=== PATIENT | male | born 1980 | race Caucasian/White ===

== ENCOUNTER → 2019-06-09 11:23 | Outpatient (CLI) | payer OTHER, SELFPAY ==
--- NOTE | ~2019-06-09 | XR_ITS ---
EXAMINATION: XR hip RT min 2V EXAM DATE: 06/09/2019 11:51 INDICATION: No known recent injury provided at this time. Pain of the right hip. TECHNIQUE: Right hip frontal, 'frog leg' projections for interpretation. There is no prior study fo r comparison. FINDINGS: Smooth right hip femoral head contour, no radiographic evidence of avascular necrosis. The re is mild primary osteoarthritis. Lumbar fusion L5-S1. There are no acute fractures or dislocations identified. There is no subcutaneous gas. The soft tissue is unremarkable. There are no radiopaq ue foreign bodies. IMPRESSION: Mild left hip osteoarthritis. Reviewed, dictated and finalized at location B. EILLANCE DUAL RATE OFFICER
== END ==
PROVIDERS: PCP Family Medicine; Visit Provider Family Medicine
DX: M16.12 Unilateral primary osteoarthritis, left hip (principal)
CPT/HCPCS: 73502

== ENCOUNTER → 2020-01-18 14:03 | Outpatient (CLI) | payer OTHER, SELFPAY ==
--- NOTE | ~2020-01-18 | XR_ITS ---
EXAMINATION: XR knee RT 3V DATE: 01/18/2020 14:13 INDICATION: Right knee pain TECHNIQUE: Three views of the right knee were obtained. COMPARISON: 01/29/2014 FINDINGS: Alignment is normal. No fracture or osteochondral lesion. There is mild tricompartmental os teoarthritis characterized by tiny marginal osteophytes. There is a small to moderate size knee joint effusion. Soft tissues are unremarkable. IMPRESSION: 1. Mild osteoarthritis with small to moderate-sized knee joint effusion. Reviewed, dictated and finalized at location A.
== END ==
PROVIDERS: PCP Family Medicine; Visit Provider Physician Assistant
DX: S89.91XA Unspecified injury of right lower leg, initial encounter (principal); X58.XXXA Exposure to other specified factors, initial encounter; M17.11 Unilateral primary osteoarthritis, right knee; M25.461 Effusion, right knee
CPT/HCPCS: 73562

== ENCOUNTER 2020-01-19 07:29 | Emergency (ER) | payer OTHER, SELFPAY ==
[2020-01-19] VITALS (19 sets, daily range): BP systolic 121–134; BP diastolic 62–75; PULSE 67–93; RESP 12–24; TEMP 36.7; O2SAT 98–99
--- NOTE | ~2020-01-19 | CT_ITS ---
EXAMINATION: CT brain wo con DATE: 01/19/2020 08:09 INDICATION: Syncope. Head injury. TECHNIQUE: Computed tomography (CT) of the head was performed without intravenous contrast. The mA wa s adjusted according to patient size. Iterative reconstruction technique was employed. The dose-lengt h product was 605.33 mGy-cm. COMPARISON: None FINDINGS: There is no intracranial hemorrhage, acute infarction, or abnormal intracranial mass lesion . The ventricles are normal in size. The orbits are normal. There is minimal mucosal thickening in ri ght maxillary sinus. The mastoid air cells are normal. IMPRESSION: 1. Normal brain. Reviewed, dictated and finalized at location D. IMPRESSION: 1. Normal brain.
--- NOTE | ~2020-01-19 | XR_ITS ---
EXAMINATION: XR chest 1V DATE: 01/19/2020 08:12 INDICATION: Syncope. TECHNIQUE: A single frontal view of the chest was obtained. COMPARISON: None. FINDINGS: There are mild airspace opacities in right midlung zone. No pleural effusion or pneumothora x. The heart size is normal. IMPRESSION: 1. Mild airspace opacities in right midlung zone, consistent with atelectasis versus pneumonia. Reviewed, dictated and finalized at location D. IMPRESSION: 1. Mild airspace opacities in right midlung zone, consistent with atelectasis v ersus pneumonia.
--- NOTE | 2020-01-19 07:51 | ECG_ITS ---
Measurements Intervals [place] Rate: 72 P: 25 MS: 126 QRS: 28 QRSD: 106 T: 30 QT: 377 QTc: 415 Interpretive Statements SINUS RHYTHM NORMAL ECG Electronically Signed On 01-19-2020 8:43:28 CDT by Aníbal Pimentel D.O.
--- NOTE | 2020-01-19 07:52 | ED.SYNCOPE ---
HPI - Syncope General Chief Complaint: Syncope Stated Complaint: Urgent care sent/syncopal episode Time Seen by Provider: 01/19/20 07:38 Source: patient Mode of arrival: ambulatory Limitations: no limitations History of Present Illness HPI narrative: This patient is a 39 year old male who presents for evaluation of a syncopal episode. He states starting last night while sleeping he was having intermittent spells in which he was having chills and hot flashes. This morning he got up to go the restroom while having one of his spells, and he developed dizziness on standing. He states he passed out and hit his head. He denies having chest pain, sob, fever, nausea, vomiting, abdominal pain, palpitations with these episodes. He denies any symptoms now. MD complaint: loss of consciousness Related Data Home Medications Medication Instructions Recorded Confirmed No Home Medications 01/19/20 01/19/20 Allergies Allergy/AdvReac Type Severity Reaction Status Date / Time No Known Allergies Allergy Unknown Verified 01/19/20 07:35 Review of Systems Review of Systems: All systems reviewed & are unremarkable except as noted in HPI and below Constitutional: Constitutional: Reports chills Eyes: Eyes: Reports no additional eye complaints Cardiovascular: Cardiovascular: Denies chest pain and Denies rapid heart rate Respiratory: Respiratory: Denies cough and Denies dyspnea Gastrointestinal: Gastrointestinal: Denies abdominal pain, Denies diarrhea, Denies nausea and Denies vomiting Neurologic: Reports syncope Endocrine: Endocrine: Reports excessive sweating PMFSH Past Medical History Medical History (Updated 01/19/20 @ 09:51 by Kelli Talbert MD) Erectile dysfunction Essential (primary) hypertension IFG (impaired fasting glucose) Low testosterone in male Morbid (severe) obesity due to excess calories DL on CPAP Surgical History Surgical History (Updated 01/19/20 @ 07:53 by Kelli Talbert MD) Previous back surgery S/P bariatric surgery Social History Social History Social History: Years smoked: 3 Smoking status: Former smoker Tobacco type: cigarettes Second hand tobacco smoke exposure: No Smoking end date: 04/12/01 Alcohol intake: never Substance use: never Substance use type: does not use Gender identity (if verbalized by the patient): Male Exam Const: General: no acute distress and alert Orientation/consciousness: patient oriented x3 HENMT: Head: normocephalic and scalp tenderness (left posterior) Ears: TM's normal bilaterally General nose exam: Other nasal findings present (superficial abrasion to right nasal bridge) Face and sinus: face symmetric Mouth: Yes Normal oral and palatal mucosa present, Yes lip normal and Yes oropharynx normal Throat: posterior oropharynx normal, tonsils normal and uvula midline Eyes: Pupils: Equal, round and reactive pupils present EOM: EOMs intact bilaterally Chest: Chest palpation & inspection: normal inspection of the chest Resp: Effort & Inspection: normal respiratory effort and no retractions Auscultation: clear to auscultation bilaterally Cardio: Rate: regular rate Rhythm: regular rhythm Heart sounds: no murmurs GI: GI Palp: Yes Soft to palpation, No Tenderness to palpation present (GI) and No Guarding due to palpation present (GI) Auscultation: normal bowel sounds Back/Spine/Pelvis: Back: no CVA tenderness Skin: General skin exam: normal color Rashes: no rashes Neuro: General: patient oriented x3, moves all extremities and CN's II-XI intact bilaterally Course Reevaluation(s) Reevaluation #1: I have discussed with patient no acute findings. he denies any complaints. Date: 01/19/20 Time: 09:49 Vital Signs Vital signs: Vital Signs Temperature 98.1 F 01/19/20 07:33 Pulse Rate 82 01/19/20 07:33 Respiratory Rate 18 01/19/20 07:33 Bloo
[2020-01-19 08:03] LABS: Basophils Percent Auto 0.2 % (0.2-1.2); Eosinophils Absolute Auto 0.1 K/mm3 (0-0.3); Eosinophils Percent Auto 0.5 % (0-4.4); Hematocrit 43.7 % (42.0-52.0); Hemoglobin 14.7 g/dL (14.0-18.0); Immature Granulocyte Absolute 0.05 K/mm3 (0.00-0.031); Immature Granulocyte Percent A 0.4 % (0-0.5); Lymphocytes Absolute Auto 1.14 K/mm3 (0.9-3.2); Lymphocytes Percent Auto 9.4 % (18.3-44.2); Mean Corpuscular HGB Conc 33.6 g/dl (32-36); Mean Corpuscular Hemoglobin 28.2 pg (26-34); Mean Corpuscular Volume 83.7 fl (80-100); Mean Platelet Volume 10.6 fl (7.4-10.4); Monocytes Percent Auto 8.6 % (2.6-8.5); Neutrophils Absolute Auto 9.8 K/mm3 (1.3-6.7); Neutrophils Percent Auto 80.9 % (45.5-73.1); Platelet Count Result 252 k/mm3 (150-375); Red Blood Count 5.22 M/mm3 (4.6-6.20); Red Cell Distribution Width 12.8 % (11.5-14.5); White Blood Count 12.1 K/mm3 (4.5-10.0)
[2020-01-19] MEDS: SODIUM CHLORIDE 0.9% IV 1,000 ML 999 ML IV CONT (08:03)
--- NOTE | 2020-01-19 08:03 | PC.NURSE ---
Patient has wound to bridge of nose and upper lip from the fall this morning. Patient A&Ox4, speech clear. Respirations non-labored. Patient updated on plan of care. Patient to CT at this time via stretcher.
[2020-01-19 08:13] LABS: INR 1.1; Prothrombin Time 14.1 Seconds (11.1-14.7)
[2020-01-19 08:14] LABS: Partial Thromboplastin Time 30.7 SECONDS (22.3-36.8)
[2020-01-19 08:16] LABS: Alanine Aminotransferase 22 U/L (4-50); Albumin Level 4.5 g/dL (3.5-5.1); Alkaline Phosphatase 71 U/L (38-126); Anion Gap 9 mmol/L (8-16); Aspartate Amino Transferase 23 U/L (17-59); Bilirubin,Total 0.7 mg/dL (0.2-1.3); Blood Urea Nitrogen 16 mg/dL (9-20); Calcium 9.9 mg/dL (8.4-10.2); Carbon Dioxide 30 mmol/L (22-30); Chloride 102 mmol/L (98-107); D Dimer 0.37 ug/mL (<0.48); Estimated CRCL calculation 99 ml/min; Estimated Glomerular Filt Rate > 60; Glucose 106 mg/dL (75-110); Magnesium 1.6 mg/dL (1.6-2.3); Sodium 141 mmol/L (137-145)
[2020-01-19 08:28] LABS: Troponin I < 0.012 ng/mL (0.000-0.034)
[2020-01-19 09:23] LABS: Add Urine Microscopic? YES; Appearance Urine Clear (Clear); Bacteria Urine Trace /hpf; Bilirubin Urine Negative (Negative); Blood Urine Negative (Negative); Color Urine Yellow (Yellow); Glucose Urine UA Negative (Negative); Ketones Urine 1+ mg/dL (Negative); Leukocyte Esterase Ur Negative LEU/UL (Negative); Mucus Urine Few /lpf; Nitrate Urine Negative (Negative); Protein Urine Negative (Negative); RBC Urine 0-2 /hpf (0-2); Specific Grav Ur 1.025 (1.001-1.035); Squamous Epithelial Cell Urine Rare /hpf (Few); Urobilinogen Urine Negative mg/dL (<2.0)
== END 2020-01-19 10:00 | disposition home or self-care (01) ==
PROVIDERS: Emergency Provider General Practice; PCP Family Medicine
DX: R55 Syncope and collapse (principal); R91.8 Other nonspecific abnormal finding of lung field; Z87.891 Personal history of nicotine dependence
CPT/HCPCS: 36415; 70450; 71045; 80053; 81001; 83735; 84484; 85025; 85380; 85610; 85730; 93005; 99284; J7030

== ENCOUNTER → 2020-02-21 12:18 | Outpatient (CLI) | payer OTHER, SELFPAY ==
--- NOTE | ~2020-02-21 | XR_ITS ---
XR_CERV2-3V_CR DATE: 02/21/2020 12:35 INDICATION: Neck pain TECHNIQUE: AP, open-mouth, lateral, swimmer views COMPARISON: None FINDINGS: There is mild reversal of cervical spine. C1 and C2 are normally aligned and the odontoid p rocess is intact. No fracture or dislocation or locked facet or prevertebral soft tissue swelling. There is mild anterior spurring at C4-5 and C5-6. Cervical interspaces are relatively preserved. IMPRESSION: Mild reversal cervical curvature Mild degenerative disc disease at C4-5 and C5-6 Reviewed, dictated and finalized at Location A. Reviewed, dictated and finalized at location A. RVISOR URANIUM PROCESSING
--- NOTE | ~2020-02-21 | MR_ITS ---
EXAMINATION: MR knee RT wo con DATE: 02/21/2020 13:39 INDICATION: Right knee pain TECHNIQUE: Magnetic resonance imaging (MRI) of the right knee was performed without intravenous contr ast. Sequences included coronal PD-weighted FSE, coronal PD-weighted FS FSE, sagittal T2-weighted FS E, sagittal PD-weighted FS FSE and axial PD weighted fat saturated FSE. COMPARISON: None. FINDINGS: Medial compartment: There is an abnormal contour to the anterior horn of the medial meniscus with configuration suggestin g lateral displacement of a small flap tear arising from the medial side of the anterior horn. Articu lar cartilage is normal. Lateral compartment: Lateral meniscus is normal. Articular cartilage is normal. Patellofemoral compartment: Articular cartilage is normal. Ligaments and tendons: Complete tear along the proximal aspect of the anterior cruciate ligament. The posterior cruciate lig ament is normal. Prominent thickening without significant increased signal or surrounding edema of th e proximal medial collateral ligament consistent with scarring related to chronic sprain. The fibular collateral ligament complex is normal. Patellar tendon is normal. Mild distal quadriceps tendinopath y. The visualized medial and lateral hamstring tendons as well as the iliotibial band are normal. Fluid: Physiologic amount of fluid in the joint space. No loose osteochondral bodies identified. Osseous/other: There is marrow edema surrounding a linear low signal intensity nondisplaced fracture line extending across the posterior rim of the medial tibial plateau. Similar mild edema surrounding a more subtle l inear trabecular fracture line underlying the posterior rim of the lateral tibial plateau. Pattern wo uld be consistent with an anterior tibial subluxation injury as would be allowed by the complete ante rior cruciate ligament tear. There is no significant edema in the soft tissues at the intercondylar n otch suggesting this may represent a recurrent injury with the tear of the anterior cruciate ligament likely occurring at an earlier time. No corresponding bone contusions identified along the femoral c ondyles. Otherwise normal marrow signal with no pathologic marrow replacing process. IMPRESSION: 1. Complete tear of the anterior cruciate ligament which is likely chronic and scarring consistent wi th additional chronic partial tear of the proximal medial collateral ligament. 2. Marrow edema surrounding impaction fracture lines along the posterior rim of the medial and latera l tibial plateau suggesting a more recent anterior tibial subluxation injury. 3. Displaced meniscal flap tear at the anterior horn of the medial meniscus. Reviewed, dictated and finalized at location A. SITE ADMIN IMPRESSION: 1. Complete tear of the anterior cruciate ligament which is likely chronic and scarring consistent with additional chronic partial tear of the proximal medial collateral ligament. 2. Marrow edema surrounding impaction fracture lines along the posterior rim of the medial and lateral tibial plateau suggesting a more recent anterior tibial subluxation injury. 3. Displaced meniscal flap tear at the anterior horn of the medial meniscus.
== END ==
PROVIDERS: PCP Family Medicine; Visit Provider Physician Assistant
DX: M50.322 Other cervical disc degeneration at C5-C6 level (principal); M53.82 Other specified dorsopathies, cervical region; S83.511A Sprain of anterior cruciate ligament of right knee, initial encounter; M79.89 Other specified soft tissue disorders; S82.141A Displaced bicondylar fracture of right tibia, initial encounter for closed fracture; S83.241A Other tear of medial meniscus, current injury, right knee, initial encounter
CPT/HCPCS: 72040; 73721

== ENCOUNTER 2020-03-04 12:37 | Outpatient (CLI) | payer OTHER, SELFPAY ==
--- NOTE | ~2020-03-04 | US_ITS ---
EXAMINATION: US carotid duplex BI DATE: 03/04/2020 13:04 INDICATION: Syncope. TECHNIQUE: Grayscale, color Doppler, and pulsed Doppler images of the cervical carotid arteries were obtained. The degree of vessel stenosis is placed in one of the following categories: normal, <50%, 5 0-69%, >=70% but less than near-occlusion, near-occlusion, or total occlusion. Note that percent sten osis relative to normal distal artery lumen diameter is indirectly measured from velocity measurement s as described by Everton, et al. Radiology 2003; 229:340-346. Notes: Normal: Peak systolic velocity <125 centimeters/sec and no plaque <50%. Peak systolic velocity <125 ( EDV <40; ICA/CCA PSV ratio <2.0; used these factors only a tandem lesions or low cardiac output or co ntralateral disease) 50-69 %: PSV 125-230 (EDV 40-100; ratio 2-4) >= 70% but less than near occlusion: PSV greater than 230 (EDV > 100; ratio> 4.0) Near Occlusion: PSV that is variable; markedly narrowed lumen Occlusion: Absent flow on color/spectral Doppler and no lumen on mims scale. COMPARISON: None. FINDINGS: RIGHT: The right common carotid artery (CCA) peak systolic velocity (PSV) is 118 cm/s. The right internal ca rotid artery (ICA) PSV is 104 cm/s. The right ICA end-diastolic velocity (EDV) is 23 cm/s. The right ICA/CCA PSV ratio is 0.9. The external carotid artery (ECA) PSV is 103 cm/s. There is antegrade flow in the right vertebral artery. LEFT: The left CCA PSV is 99 cm/s. The left ICA PSV is 82 cm/s. The left ICA EDV is 21 cm/s. The left ICA/C CA PSV ratio is 0.8. The ECA PSV is 119 cm/s. There is antegrade flow in the left vertebral artery. IMPRESSION: 1. Less than 50% stenosis in the right internal carotid artery by sonographic criteria. 2. Less than 50% stenosis in the left internal carotid artery by sonographic criteria. Reviewed, dictated and finalized at location A. N TUNER IMPRESSION: 1. Less than 50% stenosis in the right internal carotid artery by sonographic anson burrell. 2. Less than 50% stenosis in the left internal carotid artery by sonographic yovani jolly.
== END 2020-03-04 12:38 | disposition home or self-care (01) ==
PROVIDERS: PCP Family Medicine; Visit Provider Family Medicine
DX: R55 Syncope and collapse (principal); I65.23 Occlusion and stenosis of bilateral carotid arteries; R42 Dizziness and giddiness
CPT/HCPCS: 93880

== ENCOUNTER 2024-06-08 01:47 | Day surgery (SDC) | payer OTHER, SELFPAY ==
[2024-05-25 16:07] VITALS: BMI 45.2
--- OUTSIDE RECORDS SUMMARY | 2024-06-08 01:50 | XMS_ITS | Referral Summary ---
Author Organization [facility] Address [address] [place] [id number] Care Team Providers Care Display Designer Outside Name Role Phone Ariel Shultz MD Primary Care Provider Allergies No known active allergies Medications latanoprost (XALATAN) 0.005 % ophthalmic solution 06/04/2021 Active Active Problems Problem Noted Date Diagnosed Date Dizziness 06/05/2021 Status post bariatric surgery 06/05/2021 Syncope and collapse 06/05/2021 Bradycardia 06/05/2021 Pain of finger of right hand 06/05/2021 Lumbago 03/20/2015 Degeneration of intervertebral disc of lumbosacr al region 03/20/2015 Lumbar disc herniation with radiculopathy 2014 Morbid obesity 08/02/2014 Social History Tobacco Use Types Packs/Day Years Used Date Smoking Tobacco: Former Cigarettes 0.3 3 Smokeless Tobacco: Never AUDIT-C Answer Date Recorded Q1: How often do you have a drink containing alc ohol? Never 06/05/2021 Average Number of Drinks Not on file 022 Frequency of Binge Drinking Not on file 05/14 Personal Safety Answer Date Recorded Getting School Help Needed Not on file 06/25 Sex and Gender Information Value Date Recorded Sex Assigned at Not on file Legal Sex Male 5:30 AM THERAPIST RRT Gender Identity Not on file Sexual Orientation Not on file Last Filed Vital Signs Vital Sign Reading Time Taken Comments Blood Pressure 128/88 06/05/2021 2:21 PM THERAPIST RRT Pulse 88 06/05/2021 2:21 PM THERAPIST RRT Temperature - - Respiratory Rate - - Oxygen Saturation 97% 06/05/2021 11:30 AM THERAPIST RRT Inhaled Oxygen Concentration - - Weight 104.8 kg (231 lb) 06/05/2021 11:30 AM THERAPIST RRT Height 177.8 cm (5' 10 ) 06/05/2021 11:30 AM THERAPIST RRT Body Mass Index 33.15 06/05/2021 11:30 AM THERAPIST RRT Plan of Treatment Not on file Insurance [facility] CHOICE PLUS [facility] HMO/PPO Address: [facility] [address] [place] [address] [employer] OPEN ACCESS Care Teams Display Designer Outside Relationship Specialty Start Date End Date Ariel Shultz MD [address] [place] [address] [address] [facility] [address] [place] [address] PCP - General Family Medicine 01/16/19
--- OUTSIDE RECORDS SUMMARY | 2024-06-08 01:50 | XMS_ITS | Encounter Summary ---
Author Organization [facility] Address [address] [place] [address] Care Team Providers Care Rinkman Name Role Phone Ariel Shultz MD Primary Care Provider Encounter Details Date Type Department Care Team (Late st Contact Info) Description 02/02/2019 Abstract [facility] Operating Room [address] [phone] Michael Álvarez MD [address] [place] [address] Social History Tobacco Use Types Packs/Day Years Used Date Smoking Tobacco: Never Assessed Sex and Gender Information Value Date Recorded Sex Assigned at Not on file Legal Sex Male 9:33 PM CDT Gender Identity Not on file Sexual Orientation Not on file documented as of this encounter Plan of Treatment Not on file documented as of this encounter Visit Diagnoses Not on filedocumented in this encounter Care Teams Rinkman Relationship Specialty Start Date End Date Ariel Shultz MD [address] [facility] [address] [facility] [address] [place] [address] PCP - General Family Practice 03/10/19 documented as of this encounter
--- OUTSIDE RECORDS SUMMARY | 2024-06-08 01:50 | XMS_ITS | Clinical Summary ---
Author Organization [facility] Address [address] [place] [id number] Care Team Providers Care Stamp Presser Name Role Phone Ariel Shultz MD Primary Care Provider Social History Tobacco Use Types Packs/Day Years Used Date Smoking Tobacco: Never Assessed Sex and Gender Information Value Date Recorded Sex Assigned at Not on file Legal Sex Male 4:39 PM CDT Gender Identity Not on file Sexual Orientation Not on file Last Filed Vital Signs Vital Sign Reading Time Taken Comments Blood Pressure 116/74 09/13/2014 5:36 PM CDT Pulse 80 09/13/2014 5:36 PM CDT Temperature - - Respiratory Rate - - Oxygen Saturation - - Inhaled Oxygen Concentration - - Weight 158.8 kg (350 lb) 09/13/2014 5:36 PM CDT Height 180.3 cm (5' 11 ) 09/13/2014 5:36 PM CDT Body Mass Index 48.82 09/13/2014 5:36 PM CDT Plan of Treatment Health Maintenance Due Date Last Done Comments Colorectal Cancer Screening Colonoscopy (10 Years) 1979 Annual Physical 1982 Hepatitis C 1997 DTaP, Tdap and Td Vaccines ( 1 - Tdap) 1998 Hepatitis B Vaccines (1 of 3 - 19+ 3-dose series) 1998 COVID-19 Vaccine (2023-2 5 season) 2023 Influenza Adult (#1) 2024 HPV Vaccines Aged Out No longer eligi ble based on patient's age to complete this topic Meningococcal B Vaccine Aged Out No l onger eligible based on patient's age to complete this topic Meningococcal Vaccine Aged Out No vern juan eligible based on patient's age to complete this topic Pneumococcal Vaccine: Pediat rics (0 to 5 Years) and At-Risk Patients (6 to 64 Years) Aged Out No longer eligible b ased on patient's age to complete this topic RSV Immunizations Under 20 Months Aged Out No longer eligible based on patient's age to complete this topic Care Teams Stamp Presser Relationship Specialty Start Date End Date Ariel Shultz MD [address] [place] [address] PCP - General 09/11/14
--- OUTSIDE RECORDS SUMMARY | 2024-06-08 01:50 | XMS_ITS | Clinical Summary ---
Author Organization [facility] Address [address] [place] [phone] Care Team Providers Care Pleat Taper Name Role Phone Ariel Shultz MD Primary [...] herniation with radiculopathy 2014 Morbid obesity 08/02/2014 Surgical History Surgery Date Site/Laterality Comments LASIK Corneal LASIK - 2009 (Added by Conv) SLEEVE GASTROPLASTY SPINAL FUSION KNEE SURGERY Medical History Medical History Date Comments Personal history of other di seases of the circulatory system History of hypertension - (A dded by TW Conv) Hypertension Dizzy Sleep apnea Family History Medical History Relation Name Comments Cancer Father Family history of malignant neoplasm - (Added by TW Conv) Hypertension Mother Family history of hypertension - (Added by TW Conv) Obesity Mother Family history of obesity - (Added by TW Conv) Relation Name Status Comments Brother Alive Father (Age 73) Mother Alive Social History Tobacco Use Types Packs/Day Years [...] on file Legal Sex Male 5:30 AM CAREER DEVELOPMENT CONSULTANT Gender Identity Not on file Sexual Orientation Not on file Obstetrics History Last Filed Vital Signs Vital Sign Reading Time Taken Comments Blood Pressure 128/88 06/05/2021 2:21 PM CAREER DEVELOPMENT CONSULTANT Pulse 88 06/05/2021 2:21 PM CAREER DEVELOPMENT CONSULTANT Temperature - - Respiratory Rate - - Oxygen Saturation 97% 06/05/2021 11:30 AM CAREER DEVELOPMENT CONSULTANT Inhaled Oxygen Concentration - - Weight 104.8 kg (231 lb) 06/05/2021 11:30 AM CAREER DEVELOPMENT CONSULTANT Height 177.8 cm (5' 10 ) 06/05/2021 11:30 AM CAREER DEVELOPMENT CONSULTANT Body Mass Index 33.15 06/05/2021 11:30 AM CAREER DEVELOPMENT CONSULTANT Plan of Treatment Not on file Insurance [facility] [place] [address] [facility] Care Teams Pleat Taper Relationship Specialty Start Date End Date Ariel Shultz MD [address] [facility] [address] [place], [place] [phone] PCP - General Family Medicine 01/16/19
--- OUTSIDE RECORDS SUMMARY | 2024-06-08 01:51 | XMS_ITS | Clinical Summary ---
Author Organization [facility] Address [address] [facility] [address] [address] Phone Care Team Providers Care Disability Hearing Officer Name Role Phone Ariel Shultz MD Primary Care Provider [phone] Allergies No known active allergies Medications latanoprost (XALATAN) 0.005 % solution 1 Drop daily at bedtime. Active amLODIPine (NORVASC) 5 mg tablet Take 5 mg by mouth daily. Active lisinopril (PRINIVIL) 10 mg tablet Take 10 mg by mouth daily. Active testosterone (TESTIM) 50 mg/5 gram (1 %) Gel by See Admin Instructions route daily. Apply the contents of one tube to the shoulders and upper arms in the morning. Active HYDROcodone-gee taminophen (HYCET) 7.5-325 mg/15 mL SolutionIndicat ions:Morbid obesity (CMS/HCC) Take 15 mL by mouth every 6 hours as needed for Pain, Severe. Max Daily Amount: 60 mL 300 mL 03/28/2019 11:50 AM CONTINUOUS IMPROVEMENT MANAGER 9 Active ondansetron (ZOFRAN ODT) 4 mg Tablet, Rapid Dissolve Place 1 Tablet (4 mg) under tongue every 6 hours as needed for Nausea. 15 Tablet 03/28/2019 11:50 AM CONTINUOUS IMPROVEMENT MANAGER 9 Active Active Problems Problem Noted Date Diagnosed Date Morbid obesity Social History Tobacco Use Types Packs/Day Years Used Date Smoking Tobacco: Former Smokeless Tobacco: Never Alcohol Use Standard Drinks/Week Comments Not Currently 0 (1 standard drink = 0.6 oz pur e alcohol) Sex and Gender Information Value Date Recorded Sex Assigned at Not on file Legal Sex Male 9:33 PM CDT Gender Identity Not on file Sexual Orientation Not on file Last Filed Vital Signs Vital Sign Reading Time Taken Comments Blood Pressure 133/79 03/28/2019 12:00 PM CONTINUOUS IMPROVEMENT MANAGER Pulse 76 03/28/2019 12:00 PM CONTINUOUS IMPROVEMENT MANAGER Temperature 36.7 C (98.1 F) 03/28/2019 12:00 PM CONTINUOUS IMPROVEMENT MANAGER Respiratory Rate 18 03/28/2019 12:00 PM CONTINUOUS IMPROVEMENT MANAGER Oxygen Saturation 100% 03/28/2019 12:00 PM CONTINUOUS IMPROVEMENT MANAGER Inhaled Oxygen Concentration - - Weight 161 kg (355 lb) 03/28/2019 4:18 AM CONTINUOUS IMPROVEMENT MANAGER Height 177.8 cm (5' 10 ) 03/27/2019 11:00 AM CONTINUOUS IMPROVEMENT MANAGER Body Mass Index 50.94 03/27/2019 11:00 AM CONTINUOUS IMPROVEMENT MANAGER Plan of Treatment Health Maintenance Due Date Last Done Comments Pre-Diabetes and Diabetes Screening 1979 DTAP/TDAP/TD VACCINES (1 - Tdap) 1998 HEPATITIS B VACCINES (1 of 3 - 19+ 3-dose series) 1998 INFLUENZA VACCINE (#1) 2023 COLORECTAL SCREENING 2024 Colorectal Cancer Screening 2024 FIT-DNA Q 3 years 2024 FIT/FOBT Q 1 year 2024 Flex Sig/CT Colonography Q 5 years 2024 HPV VACCINES Aged Out No longer eligi ble based on patient's age to complete this topic PNEUMOCOCCAL VACCINE 0-64 YEARS Aged Out No longer eligible based on patient's age to complete this topic Medical Devices Implanted Type Area Retail Team Member Device Identifier Shelf Expiration Date Model / Serial / Lot Seamguard Endogia 60 Blck [id number] - [id number] Implanted:Qty : 2 on 03/27/2019 by Michael Álvarez MD at [facility] Biological N/A: Stomach [employer] 01/11/2022 [id number] / / [id number] Seamguard Endogia 60 Prpl [id number] - [id number] Implanted:Qty : 3 on 03/27/2019 by Michael Álvarez MD at [facility] Biological N/A: Stomach [employer] 01/12/[id number] / / [id number] Spinal Hardware Insurance [facility] [id number] RX [employer] RX Member Subscriber Plan / Payer (Ef fective for All Dates) Name:Phil Mccann Relation to Subscriber:Self Name:RamyPhil Hanh Payer ID:Not on file Group ID:[id number] Type:RX Commercial Address: [address] Advance Directives For more information, please contact: [phone] * Full Code (Latest Code Status on File) Date Activated Date Inactivated Comments 03/27/2019 10:52 AM 03/28/2019 6:47 PM * Full Code Date Activated Date Inactivated Comments 03/27/2019 6:20 AM 03/27/2019 10:52 AM Care Teams Disability Hearing Officer Relationship Specialty Start Date End Date Ariel Shultz MD [address] [facility] [address] [place] [id number] PCP - General Family Practice 03/10/19
--- OUTSIDE RECORDS SUMMARY | 2024-06-08 01:51 | XMS_ITS | Continuity of Care Document ---
Author Name [facility] Organization [facility] Care Team Providers Care Bulk Plant Manager Name Role Phone [facility] Unavailable Unavailable Social History Combined list of available smoking, tobacco, and other social history from Department of Defense and Veterans Affairs facilities. Social History Type Response Date Comment Sourc e This section is an empty social history section. [facility]
--- OUTSIDE RECORDS SUMMARY | 2024-06-08 01:51 | XMS_ITS | Continuity of Care Document ---
Author Organization [facility] [place] [address] [facility] [address] [place] [phone] Phone Care Team Providers Care Mechanical Designer Name Role Phone Lucy CHAN FACS, Eliecer Unavailable Unavailab le Allergies, Adverse Reactions, Alerts Substance Reaction Status Criticality No Known Allergies Active No Inform ation Medications Medication Instructions Dosage Effective Dates (start - stop) Status Comments LATANOPROST OP TOÑO 0.005% INSTILL 1 DROP INTO BOTH EYES IN THE EVENING (REFRIGERATE UNTIL FIRST OPENED FOR USE) 1 drop - Active lisinopril 20 mg-hydrochlorothia zide 25 mg tablet take 1 tablet by oral route every day 1.00 tablet - Active amlodipine 5 mg tablet take 1 tablet by oral route every day 5 MG - Active LATANOPROST OP TOÑO 0.005% INSTILL 1 DROP INTO BOTH EYES IN THE EVENING (REFRIGERATE UNTIL FIRST OPENED FOR USE) 1 drop - No Longer Active Procedures Procedure Date Refraction Visual Field Examination(s) Fundus Photography W/ Report Corneal Topography Eye Exam & Treatment Corneal Topography Office/outpatient Visit, Est No Charge Refraction Contact Lens Check SCODI, Posterior Segment Office/outpatient Visit, Est No Charge Refraction Fundus Photography W/ Report IOLMaster Corneal Topography IOLMaster Eye Exam Established Pt No Charge Refraction No Charge Optomap Fundus Photos 017 Corneal Topography Office/outpatient Visit, Est No Charge Refraction Eye Exam & Treatment Corneal Topography Allegretto-Lasik Comanaged Allegretto-Lasik Comanaged Corneal Topography Advance Directives Directive Yes / No Effective Date File Name No Information Encounters Encounter Description Practice Location Reason(s) For Visit Diagnoses Date Provider Providers Copied on Encounter Located within [facility], [address] [place], [place] [address] [address], [place], [place], [address], tel:[phone] [address] [place] No Information 1 Lucy Gonzáles. [facility] [employer], [address], [place], [place], [address], [place]. tel:[phone] Located within [facility], [facility] [address], [place], [place], [address], [place] tel:[phone] SEC Juancarlos N [place]berg[place] No Information 1 Lucy Gonzáles. [facility] [employer], [address], [place], [place], [address], [place]. tel:[phone] Located within [facility], [facility] [employer] [address], [place], [place], [address], [place] tel:[phone] SEC Juancarlos N [place] 6 month Complete (chief complaint) Keratoconus, stable, right eyeOcular hypertension, bilateralOther age-related incipient cataract, right eyeHx of LASIK 8 Lucy Gonzáles. [facility] [employer], [address], [place], [place], [address], [place]. tel:[phone] Referring Provider: Bronson Schafer, [address] [place] [address] [address], [place], [address] . tel:[phone] Office/outpat ient Visit, [facility], [address], [place], [place], [address], [place] tel:[phone] SEC Juancarlos Sawyer 3-4 Month follow up (chief complaint) Unspecified cataractKeratoc onus, stable, right eyeOcular hypertension, bilateral Mar-0 5-201 8 Lucy Eliecer. [address] [place] [address], [address], [place], [place], [address], [place]. tel:[phone] Referring Provider: Bronson Schafer, [address] [facility] [address] [facility], [place], [address] . tel:[phone] Located within [facility], [address] [place] [address] [address], [place], [place], [address], [place] tel:[phone] SEC Juancarlos Sawyer contact lens fitting (chief complaint) Peripheral opacity of both corneasKeratoco nus, unspecified, bilateral Nov-0 6-201 7 Winnie Dobson. [address] [facility], [address], [id number], [place]. tel:[phone] Referring Provider: Bronson Schafer, [address] [facility] [address] [facility], [place], [address] . tel:[phone] Office/outpat ient Visit, [facility], [address] [place] [address] [address], [place], [place], [address], [place] tel:[phone] SEC Juancarlos Sawyer glaucoma, pressure check (chief complaint) Ocular hypertension, bilateral Nov-0 6-201 7 Lucy Eliecer. [address] [place] [address], [address], [place], [place], [address], [place]. tel:[phone] Referring Provider: Bronson Schafer, [address] [facility] [address], [place], [address] . tel:[phone] Located within [facility], [address] [place] [address] [address], [place], [place], [address], [place] tel:[phone] SEC Juancarlos Sawyer Office visit (chief complaint) No Information 0 2-201 7 Lucy Eliecer. [address] [place] [address], [address], [place], [place], [address], [place]. tel:[phone] Referring Provider: Bronson Schafer, [address] [facility] [address], [place], [address] . tel:[phone] Office/outpat ient Visit, [facility], [address] [place] [address] [address], [place], [place], [address], [place] tel:[phone] SEC Juancarlos Sawyer 4 week Follow Up (chief complaint) No Information Nov--201 7 Neversink Eliecer. [address] [place] [address], [address], [place], [place], [address], . tel:[phone] Referring Provider: Bronson Schafer, [address] [facility] [address], [place], [address] . tel:[phone] Located within [facility], [address] [place] [address] [address], [place], [place], [address], [place] tel:[phone] SEC Juancarlos Sawyer Blurry VA (chief complaint) No Information 0 3 7 Winnie Dobson. [address] [facility], [facility] [address], [place], [address], [place]. tel:[phone] Referring Provider: Bronson Schafer, [address] [facility] [address], [place], [address] . tel:[phone] Located within [facility], [address] [place] [address] [address], [place], [place], [address], [place] tel:[phone] SEC [facility] No Information 3-201 0 Lucy Eliecer. [address] [place] [address], [address], [place], [place], [address], . tel:[phone] Referring Provider: Daron Wood OD F, [address] [facility] [address], [place], [address]. tel:[phone] [facility], [address], [place], [place], [address], [place] tel:[phone] [address] [facility] [place] No Information 2-201 0 [facility] . [address] [facility], [place], [place], [address], [place]. tel:[phone] Referring Provider: Daron Wood OD F, [address], [place], [address]. tel:[phone] Family History Family Member Type Diagnosis Age At Onset No Information Payers Payer name Insurance type Covered democrat ID Authorarely hairston(s) Dottie CANCINO [id number] Social History Type Description Quantity Date Captured Comments Sex Male Smoking Status No Information Chief Complaint And Reason For Visit No Information Reason For Referral Reason For Referral No Information Plan Of Treatment Date Type Action Status Patient Education Learning About Ocular H ypertension completed History Of Present Illness Encounter Date Complaint History Of Prese nt Illness 6 month Complete The 37 year old male presents for evaluation of 6 month Complete in the right eye and left eye. Hx of OHT OU, Keratoconus OU, and LASIK OU (2009). Patient states he feels his VA is getting worse. Patient would like to get an rx for glasses today, aware of fee and signed abn form. Patient using Latanoprost QD OU last used @ 730pm. No refills needed 3-4 Month follow up The 37 year old male presents for evaluation of 3-4 Month follow up in the right eye and left eye. Hx Ocular Hypertension OU, Keratoconus OU. Pt currently using Latanoprost QHS OU. Pt states vision OD is horrible, its blurry, does not do anything to attempt to clear vision other than using Rx gtts, vision OD has been blurry since initial visit wit SV, pt has no concerns with OS vision at this time. Pt denies any pain or discomfort at this time. contact lens fitting The 36 year old male presents for contact lens fitting in the right eye and left eye. Patient is seeing Dr. Ayala 1st. glaucoma, pressure check The 36 year old male presents for a 1 month IOP check ou due to ocular hypertension. Patient is using Latanoprost qhs ou. Office visit The 36 year old male presents for Office visit in the right eye and left eye. Hx Lasik OU, Corneal Opacity OU. Pt states his vision is getting worse since his last exam. Pt states OD is worse than OS in both distance and near. Pt states he has trouble driving at night due to poor vision. Pt states he has trouble reading road signs, small print due to poor vision. Pt states he is bothered by glare on bright days and at nigt while driving. Pt states he is not using eye dorps. Pt states he currently resides in [place] for the past 4 months. 4 week Follow Up The 36 year old male presents for 4 week Follow Up in the right eye and left eye. Hx Lasik OU, Corneal Opacity OU. Pt states his vision is doing Pt states OD is blurry and has been since June 2016, after he had an eye infection. Pt states he was prescribed Pred Forte TID x3 days, then BID x3 days, then QDx3 days OD then D/C. Pt states OS is fine no changes to report. Pt states he is not currently having any pain/discomfort but his vision has yet to improve. Blurry VA The 36 year old male presents for Blurry VA in the right eye. Hx of Lasik OU 2009. Pt states he had an eye infection in the right in May and his OD vision became blurry at distance. Pt state OD VA has never cleared up. Pt wears no gls or cls. Functional Status Date Functional Assessmen t No Information Instructions Date Instruction Additional Infor ghada Impression/Plan Impression/Plan Impression/Plan - Re turn to [facility] in 3 months as scheduled. Keratoconus, unspeci fied, bilateral - Educational material given Related to Keratoconus, unspecified, bilateral Impression/Plan - IO P improved on Latanoprost.Refills sent to [facility] employee pharmacy for mail order. Pt is going to [place]. Return to [facility] in 3-4 months for follow up and pentacam. May discuss enhancement at that time. Ocular hypertension, bilateral - Use of eye drops discussed Related to Ocular hypertension, bilateral Follow up - 1 month IOP check with OCT of ON with LAG & CTL fitting with DPW Impression/Plan - Ex am findings discussed with pt. Cataract is mild and does not appear to be the cause for his visual complaints. IOP is significantly elevated today. IOP is likely higher with his h/o Lasik. Pt was monitored with OHTN in 2009 prior to Lasik surgery with Dr. Wood. OCT & VF was normal at that time. His pre-treatment IOP was 26-27. He was treated with Lumigan ou qhs. Discussed importance of improved IOP. Will start Lumigan ou Qhs. Sample given to pt. Return to the office in 1 month for IOP check and obtain OCT of ON.Keratoconus discussed and improved vision with CTL wear. Will schedule CTL fit with DPW on the same day he is scheduled with LAG. Due to his commute Ocular hypertension, bilateral - Use of eye drops discussed Related to Ocular hypertension, bilateral Follow up - 6 months cat eval/IO P check Impression/Plan - Di scussed exam findings with pt and options for visual improvement. He understands enhancement can be done but would need to be done at [facility] and would have a fee. Discussed vision changes and glare complaints OD and explained early cataract formation OD can be the cause. Rec he hold on enhancement at this time and we will monitor cataract progression. Discussed IOP with pt and risk factors for glaucoma development. He currently lives in [place] now and drives here for his appointments. Rec he find an segmental wall installer in [place] that can check his IOP to prevent him from having to travel here so often. Pt needs BAT, BCVA prior to dilation on return visit and repeat pentacam. He understands if IOP remains elevated we will begin treatment with IOP medications. This is not indicated now. New spec Rx given to pt. Other cataract of ri ght eye - Surgery not indicated now. Related to Other cataract of right eye Impression/Plan - Re turn for corneal consultation with LAG and repeat Pentacam. Corneal opacity, per ipheral, right - Surgery not indicated now Related to Corneal opacity, peripheral, right Assessments Type Assessment Date No Information Patient Care Teams Name Effective Dates (start - stop) Status Members No Information
[2024-06-08 06:53] VITALS: BP 137/95; PULSE 91; RESP 20; TEMP 36.1; O2SAT 95; BMI 45.2
[2024-06-08] MEDS: LACTATED RINGERS 1,000 ML 150 ML IV CONT (07:13)
--- NOTE | 2024-06-08 07:20 | WPDANESEPPF ---
Anes - Initial Pre Proc Eval Procedure: Operation Date: 06/08/24 08:00 Proposed Procedures p Screening Colonoscopy - Biju Lizama MD Date/Time: 06/08/24 07:20 Surgeon: Biju Lizama MD Pre Op Diagnosis: Screening Patient Data Age: 44 Gender: M Height: 1.78 m Weight: 143 kg Last Vital Signs Temp 96.9 F L 06/08/24 06:53 Pulse 91 06/08/24 06:53 Resp 20 06/08/24 06:53 BP 137/95 H 06/08/24 06:53 Pulse Ox 95 06/08/24 06:53 O2 Del Method Room Air 06/08/24 06:53 Allergies Allergy/AdvReac Type Severity Reaction Status Date / Time No Known Allergies Allergy Unknown Verified 06/08/24 06:59 Home Medications ?Medication ?Instructions ?Recorded ?Confirmed ?Type latanoprost 0.005 % eye drops 1 drp EACH EYE HS 09/12/20 06/08/24 History multivitamin (Daily Multi-Vitamin 1 tablet PO DAILY 06/08/24 06/08/24 History tablet) Patient hx anesthesia problems: none Family hx anesthesia problems: none Results Review: All pre-operative results and documents have been reviewed as part of the pre-operative evaluation. [facility] Past Medical History Medical History Erectile dysfunction Morbid (severe) obesity due to excess calories Low testosterone in male IFG (impaired fasting glucose) DL on CPAP Essential (primary) hypertension Surgical History Surgical History Previous back surgery S/P bariatric surgery Social History Social History Social History: Years smoked: 3 Smoking status: Former smoker Tobacco type: cigarettes Second hand tobacco smoke exposure: No Smoking end date: 04/12/01 Alcohol intake: never Substance use: never Substance use type: does not use Living arrangements: with family Occupation/Education: occupation Gender identity (if verbalized by the patient): Male Sexual Orientation (if Verbalized by the Patient): Straight or Heterosexual Spiritual care concerns: No Anes - Eval Final PreProcedure Day of Procedure 06/08/24 07:20 Patient weight: morbidly obese Lungs: normal air movement Airway: Mallampati scale class II Neurological: alert and oriented Last oral intake: >/= 8 hours ASA classification: III Emergent: no Anesthetic plan: proceed Anesthesia type and monitoring: general GIVS and standard monitoring Results Review: All pre-operative results and documents have been reviewed as part of the pre-operative evaluation. DL but noncompliant w CPAP, hyperlipidemia, exercise limited by knee/back pain. Informed Consent: The patient's anesthetic plan and its attendant risks and benefits were discussed with the patient/family/POA. Questions were solicited and answers provided to the satisfaction of the patient/family/POA.
--- NOTE | 2024-06-08 07:36 | PM.IMHP ---
H&P: HPI History of Present Illness Date/Time: 06/08/24 07:36 Chief Complaint: screening colonoscopy Narrative: This is the patient's first colonoscopy. There are no GI symptoms and there is no family history of colorectal cancer. Review of Systems Review of Systems: All systems reviewed & are unremarkable except as noted in HPI and below PMFSH Past Medical History Medical History Erectile dysfunction Morbid (severe) obesity due to excess calories Low testosterone in male IFG (impaired fasting glucose) DL on CPAP Essential (primary) hypertension Surgical History Surgical History Previous back surgery S/P bariatric surgery Social History Social History Social History: Years smoked: 3 Smoking status: Former smoker Tobacco type: cigarettes Second hand tobacco smoke exposure: No Smoking end date: 04/12/01 Alcohol intake: never Substance use: never Substance use type: does not use Living arrangements: with family Occupation/Education: occupation Gender identity (if verbalized by the patient): Male Sexual Orientation (if Verbalized by the Patient): Straight or Heterosexual Spiritual care concerns: No Meds Home Medications and Allergies Home Medications ?Medication ?Instructions ?Recorded ?Confirmed ?Type latanoprost 0.005 % eye drops 1 drp EACH EYE HS 09/12/20 06/08/24 History multivitamin (Daily Multi-Vitamin 1 tablet PO DAILY 06/08/24 06/08/24 History tablet) Allergies Allergy/AdvReac Type Severity Reaction Status Date / Time No Known Allergies Allergy Unknown Verified 06/08/24 06:59 Vital Signs Vital Signs - 24 hr 06/08/24 06:53 Temperature 96.9 F L Pulse Rate 91 Respiratory Rate 20 Blood Pressure 137/95 H Pulse Oximetry 95 Oxygen Delivery Room Air Exam Const: General: cooperative and healthy appearing Resp: Effort & Inspection: normal respiratory effort and able to speak in complete sentences Auscultation: clear to auscultation bilaterally Cardio: Rate: regular rate Rhythm: regular rhythm GI: Inspection: normal to inspection GI Palp: No No hepatosplenomegaly present Auscultation: normal bowel sounds Rectal Exam: deferred Skin: General skin exam: normal color Psych: Appearance: grossly normal Mental Status: mental status grossly normal Assessment and Plan Assessment and plan (1) Encounter for screening colonoscopy: Code(s): Z12.11 - Encounter for screening for malignant neoplasm of colon Status: Acute Assessment and Plan: The patient is deemed a good candidate for the procedure. Consent signed. Will proceed.
[2024-06-08 07:56] VITALS: BP 137/85; PULSE 79; RESP 18; O2SAT 98
[2024-06-08 08:06] VITALS: BP 141/90; PULSE 75; RESP 20; O2SAT 100
[2024-06-08 08:16] VITALS: BP 140/90; PULSE 80; RESP 20; O2SAT 100
== END 2024-06-08 08:28 | disposition home or self-care (01) ==
PROVIDERS: PCP Family Medicine; Referring Provider Physician Assistant; Visit Provider Internal Medicine Gastroenterology
PROC: 0DJD8ZZ Inspection of Lower Intestinal Tract, Via Natural or Artificial Opening Endoscopic (ICD-10-PCS; CPT 45378; principal; 2024-06-08 08:00)
DX: Z12.11 Encounter for screening for malignant neoplasm of colon (principal); K57.30 Diverticulosis of large intestine without perforation or abscess without bleeding; K64.8 Other hemorrhoids; Z87.891 Personal history of nicotine dependence; E66.01 Morbid (severe) obesity due to excess calories; Z68.42 Body mass index [BMI] 45.0-49.9, adult
CPT/HCPCS: 45378; J2003; J2704; J7120

== ENCOUNTER 2024-07-01 17:24 | Emergency (ER) | payer OTHER, SELFPAY ==
--- NOTE | ~2024-07-01 | XR_ITS ---
XR hip LT 2V w AP pelvis DATE: 07/01/2024 17:52 INDICATION: Left hip pain TECHNIQUE: AP pelvis. AP and lateral views of left hip COMPARISON: None FINDINGS: Status post bilateral posterior and interbody surgical fusion at L5-S1. Normal alignment at the pubic symphysis and sacroiliac joints. No pelvic fracture or bone destruction is evident. Mild left hip osteoarthritis. No fracture or dislocation, avascular necrosis or bone destruction of t he left hip is evident. IMPRESSION: Mild left hip osteoarthritis Status post posterior and interbody surgical fusion at L5-S1 Reviewed, dictated and finalized at location A.
[2024-07-01 17:25] VITALS: BP 166/91; PULSE 84; RESP 16; TEMP 36.6; O2SAT 96
--- OUTSIDE RECORDS SUMMARY | 2024-07-01 17:26 | XMS_ITS | Clinical Summary ---
Author Organization [facility] Address 1400 [facility] [address] [address] Phone Care Team Providers Care Stripper And Printer Name Role Phone Ariel Shultz MD Primary Care Provider [phone] Allergies No known active allergies Medications latanoprost [...] 60 mL 300 mL 03/28/2019 11:50 AM STORE GROUP MANAGER 9 Active ondansetron (ZOFRAN ODT) 4 mg Tablet, Rapid Dissolve Place 1 Tablet (4 mg) under tongue every 6 hours as needed for Nausea. 15 Tablet 03/28/2019 11:50 AM STORE GROUP MANAGER 9 Active Active Problems Problem Noted [...] Comments Blood Pressure 133/79 03/28/2019 12:00 PM STORE GROUP MANAGER Pulse 76 03/28/2019 12:00 PM STORE GROUP MANAGER Temperature 36.7 C (98.1 F) 03/28/2019 12:00 PM STORE GROUP MANAGER Respiratory Rate 18 03/28/2019 12:00 PM STORE GROUP MANAGER Oxygen Saturation 100% 03/28/2019 12:00 PM STORE GROUP MANAGER Inhaled Oxygen Concentration - - Weight 161 kg (355 lb) 03/28/2019 4:18 AM STORE GROUP MANAGER Height 177.8 cm (5' 10 ) 03/27/2019 11:00 AM STORE GROUP MANAGER Body Mass Index 50.94 03/27/2019 11:00 AM STORE GROUP MANAGER Plan of Treatment Health Maintenance Due [...] age to complete this topic PNEUMOCOCCAL VACCINE 0-49 YEARS Aged Out No longer eligible based on patient's age to complete this topic Medical Devices Implanted Type Area Jordan Worker Device Identifier Shelf Expiration Date Model / Serial / Lot Seamguard Endogia 60 Blck [id number] - [id number] Implanted:Qty : 2 on 03/27/2019 by Michael Álvarez MD at [facility] Biological N/A: Stomach [employer] 01/11/2022 [id number] / / [id number] Seamguard Endogia 60 Prpl [id number] - [id number] Implanted:Qty : 3 on 03/27/2019 by Michael Álvarez MD at [facility] Biological N/A: Stomach [employer] 01/12/[id number] / / [id number] Spinal Hardware Insurance [facility] [id number] RX OPT[employer] RX Member Subscriber Plan / Payer (Ef fective for All Dates) Name:Phil Mccann Relation to Subscriber:Self Name:RamyPhil Hanh Payer ID:Not on file Group ID:[facility] Type:RX Commercial Address: [address] Advance Directives For more information, please contact: [phone] * Full Code (Latest Code Status on File) Date Activated Date Inactivated Comments 03/27/2019 10:52 AM 03/28/2019 6:47 PM * Full Code Date Activated Date Inactivated Comments 03/27/2019 6:20 AM 03/27/2019 10:52 AM Care Teams Stripper And Printer Relationship Specialty Start Date End Date Ariel Shultz MD [address] [facility] 120 [place] [id number] PCP - General Family Practice 03/10/19
--- OUTSIDE RECORDS SUMMARY | 2024-07-01 17:26 | XMS_ITS | Encounter Summary ---
Author Organization [facility] Address [address] [place] [address] Care Team Providers Care Realtime Court Reporter Name Role Phone Ariel Shultz MD Primary Care Provider Encounter Details Date Type Department Care Team (Late st Contact Info) Description 02/02/2019 Abstract [facility] Operating Room [address] [address] Michael Álvarez MD [address] [place] [address] Social History Tobacco Use Types Packs/Day Years [...] on filedocumented in this encounter Care Teams Realtime Court Reporter Relationship Specialty Start Date End Date Ariel Shultz MD [address] [facility] [address] [facility] 120 [place] [address] PCP - General Family Practice 03/10/19 documented as of this encounter
--- OUTSIDE RECORDS SUMMARY | 2024-07-01 17:26 | XMS_ITS | Clinical Summary ---
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 Gender Identity Not on file Sexual Orientation Not on file Obstetrics History Last Filed Vital Signs Vital Sign Reading Time Taken Comments Blood Pressure 128/88 06/05/2021 2:21 PM DIELECTRIC MACHINE OPERATOR Pulse 88 06/05/2021 2:21 PM DIELECTRIC MACHINE OPERATOR Temperature - - Respiratory Rate - - Oxygen Saturation 97% 06/05/2021 11:30 AM DIELECTRIC MACHINE OPERATOR Inhaled Oxygen Concentration - - Weight 104.8 kg (231 lb) 06/05/2021 11:30 AM DIELECTRIC MACHINE OPERATOR Height 177.8 cm (5' 10 ) 06/05/2021 11:30 AM DIELECTRIC MACHINE OPERATOR Body Mass Index 33.15 06/05/2021 11:30 AM DIELECTRIC MACHINE OPERATOR Plan of Treatment Not on file Insurance [facility] CHOICE PLUS [facility] HMO/PPO Address: [facility] [address] [place] [address] [facility] Care Teams Spray Stainer Relationship Specialty Start Date End Date Ariel Shultz MD [address] [facility] 120 [place], [place] [id number] PCP - General Family Medicine 01/16/19
--- OUTSIDE RECORDS SUMMARY | 2024-07-01 17:26 | XMS_ITS | Continuity of Care Document ---
Author Organization [facility] [place] [place] Address [address] [place] [address] Phone Care Team Providers Care Track Inspector Name Role Phone Lucy CHAN FACS, Eliecer [...] Diagnoses Date Provider Providers Copied on Encounter [facility], [address] [place], [place] [address], [place], [place], [id number], tel:[phone] SEC [place] No Information 1 Lucy Gonzáles. [facility] [employer], [address], [place], [place], [address], [place]. tel:[phone] [facility], [facility] [employer] [address], [place], [place], [address], [place] tel:[phone] SEC Juancarlos N [place] No Information 1 Lucy Gonzáles. [facility] [employer], [address], [place], [place], [address], [place]. tel:[phone] [facility], [facility] [employer] [address], [place], [place], [address], [place] tel:[phone] SEC Howell N [place] 6 month Complete (chief complaint) Keratoconus, stable, right eyeOcular hypertension, bilateralOther age-related incipient cataract, right eyeHx of LASIK 8 Lucy Gonzáles. [facility] [employer], [address], [place], [place], [address], [place]. tel:[phone] Referring Provider: Bronson Schafer, [address] [place] [address] [address], [place], [address] . tel:[phone] Office/outpat ient Visit, [facility], [address], [place], [place], [address], [place] tel:[phone] SEC Juancarlos Sawyer 3-4 Month follow up (chief complaint) Unspecified cataractKeratoc onus, stable, right eyeOcular hypertension, bilateral Mar-0 5-201 8 [place] Eliecer. [address] [place] [address], [address], [place], [place], [address], [place]. tel:[phone] Referring Provider: Bronson Schafer, [address] [facility] [address] [facility], [place], [address] . tel:[phone] [facility], [address] [place] [address] [address], [place], [place], [address], [place] tel:[phone] SEC Juancarlos Sawyer contact lens fitting (chief complaint) Peripheral opacity of both corneasKeratoco nus, unspecified, bilateral Nov-0 6-201 7 Winnie Dobson. [address] [facility], [address], [id number], [place]. tel:[phone] Referring Provider: Bronson Schafer, [address] [facility] [address] [facility], [place], [address] . tel:[phone] Office/outpat ient Visit, [facility], [address] [place] [address] [address], [place], [place], [address], [place] tel:[phone] SEC Juancarlos Sawyer glaucoma, pressure check (chief complaint) Ocular hypertension, bilateral Nov-0 6-201 7 Lucy Eliecer. [address] [place] [address], [address], [place], [place], [address], [place]. tel:[phone] Referring Provider: Bronson Schafer, [address] [facility] [address], [place], [address] . tel:[phone] [facility], [address] [place] [address] [address], [place], [place], [address], [place] tel:[phone] SEC Juancarlos Sawyer Office visit (chief complaint) No Information 0 2-201 7 Lucy Eliecer. [address] [place] [address], [address], [place], [place], [address], [place]. tel:[phone] Referring Provider: Bronson Schafer, [address] [facility] [address], [place], [address] . tel:[phone] Office/outpat ient Visit, [facility], [address] [place] [address] [address], [place], [place], [address], [place] tel:[phone] SEC Juancarlos Sawyer 4 week Follow Up (chief complaint) No Information Nov--201 7 Lucy Eliecer. [address] [place] [address], [address], [place], [place], [address], . tel:[phone] Referring Provider: Bronson Schafer, [address] [facility] [address], [place], [address] . tel:[phone] [facility], [address] [place] [address] [address], [place], [place], [address], [place] tel:[phone] SEC Juancarlos Sawyer [place] (chief complaint) No Information 0 3 7 Winnie Dobson. [address] [facility], [facility] [address], [place], [address], [place]. tel:[phone] Referring Provider: Bronson Schafer, [address] [facility] [address], [place], [address] . tel:[phone] [facility], [address] [place] [address] [address], [place], [place], [address], [place] tel:[phone] SEC [facility] [place] No Information 3-201 0 Lucy Eliecer. [address] [place] [address], [address], [place], [place], [address], . tel:[phone] Referring Provider: Daron Wood OD F, [address] [facility] [address], [place], [address]. tel:[phone] [facility], [address], [place], [place], [address], [place] tel:[phone] SEC [facility] [place] No Information 2-201 0 [facility] . [address] [facility], [place], [place], [address], [place]. tel:[phone] Referring Provider: Daron Wood OD F, [address] [facility] [address], [place], [address]. tel:[phone] Family History Family Member Type Diagnosis Age At Onset No Information Payers Payer name Insurance type Covered alliance party ID Authorarely hairston(s) Dottie CANCINO [id number] Social History Type Description Quantity Date Captured [...] dorps. Pt states he currently resides in [place] for the past 4 months. 4 week [...] Impression/Plan Impression/Plan Impression/Plan - Re turn to [facility] in 3 months as scheduled. Keratoconus, unspeci fied, bilateral - Educational material given Related to Keratoconus, unspecified, bilateral Impression/Plan - IO P improved on Latanoprost.Refills sent to [facility] employee pharmacy for mail order. Pt is going to [place]. Return to [facility] in 3-4 months for follow up and [...] for glaucoma development. He currently lives in [place] now and drives here for his appointments. Rec he find an glueline worker in [place] that can check his IOP to prevent [...]
--- OUTSIDE RECORDS SUMMARY | 2024-07-01 17:26 | XMS_ITS | Referral Summary ---
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 Gender Identity Not on file Sexual Orientation Not on file Last Filed Vital Signs Vital Sign Reading Time Taken Comments Blood Pressure 128/88 06/05/2021 2:21 PM ANIMAL ECOLOGIST Pulse 88 06/05/2021 2:21 PM ANIMAL ECOLOGIST Temperature - - Respiratory Rate - - Oxygen Saturation 97% 06/05/2021 11:30 AM ANIMAL ECOLOGIST Inhaled Oxygen Concentration - - Weight 104.8 kg (231 lb) 06/05/2021 11:30 AM ANIMAL ECOLOGIST Height 177.8 cm (5' 10 ) 06/05/2021 11:30 AM ANIMAL ECOLOGIST Body Mass Index 33.15 06/05/2021 11:30 AM ANIMAL ECOLOGIST Plan of Treatment Not on file Insurance [facility] CHO[facility]US [facility] H[facility]PPO Address: [facility] [address] [place] [address] [employer] OPEN ACCESS Care Teams Density Control Puncher Relationship Specialty Start Date End Date Ariel Shultz MD [address] [place] [address] [address] [facility] 120 [place] [address] PCP - General Family Medicine 01/16/19
--- OUTSIDE RECORDS SUMMARY | 2024-07-01 17:26 | XMS_ITS | Clinical Summary ---
Author Organization [facility] Address [address] [place] [address] Care Team Providers Care Probation Manager Name Role Phone Areil Shultz MD Primary Care Provider [phone] Social History Tobacco Use Types Packs/Day Years [...] age to complete this topic Care Teams Probation Manager Relationship Specialty Start Date End Date Ariel Shultz MD [address] [place] [address] PCP - General 09/11/14
--- NOTE | 2024-07-01 17:41 | ED_ITS ---
HPI - Extremity Injury (Lower) General Chief Complaint: Extremity Injury, Lower Stated Complaint: left hip pain might be dislocated Time Seen by Provider: 07/01/24 17:29 History of Present Illness HPI Narrative: 44-year-old male presents emergency department with a left femur consciousness today he was swinging his golf club when he felt 3 pops in his left hip. Since then he has been unable to bear weight. He states the vehicle lateral aspect and radiates around to the posterior hip. No other injuries. Related Data Home Medications ?Medication ?Instructions ?Recorded ?Confirmed ?Last Taken ?Type latanoprost 0.005 % eye drops 1 drp EACH EYE HS 09/12/20 06/08/24 06/07/24 History multivitamin (Daily Multi-Vitamin 1 tablet PO DAILY 06/08/24 06/08/24 06/07/24 History tablet) Allergies Allergy/AdvReac Type Severity Reaction Status Date / Time No Known Allergies Allergy Unknown Verified 07/01/24 18:30 Review of Systems Review of Systems: All systems reviewed & are unremarkable except as noted in HPI and below PMFSH Past Medical History Medical History Erectile dysfunction Morbid (severe) obesity due to excess calories Low testosterone in male IFG (impaired fasting glucose) DL on CPAP Essential (primary) hypertension Surgical History Surgical History Previous back surgery S/P bariatric surgery Social History Social History Social History: Years smoked: 3 Smoking status: Former smoker Tobacco type: cigarettes Second hand tobacco smoke exposure: No Smoking end date: 04/12/01 Alcohol intake: never Substance use: never Substance use type: does not use Living arrangements: with family Occupation/Education: occupation Gender identity (if verbalized by the patient): Male Sexual Orientation (if Verbalized by the Patient): Straight or Heterosexual Spiritual care concerns: No Exam Narrative: GENERAL: Well-appearing, well-nourished, and in no acute distress. HEAD: Normocephalic, atraumatic. ENT: Nares clear, no rhinorrhea or epistaxis. Mucous membranes moist. NECK: Supple. BACK: No midline lumbar spinous tenderness, crepitus, step-offs or deformities. CHEST: Clear to auscultation. No respiratory distress. HEART: Regular rate and rhythm. No murmur heard. Normal peripheral pulses. EXTREMITIES: Tenderness to the lateral aspect of the left hip that extends along the lateral in posterior iliac crest. Overlying skin changes or deformity. Full active and passive range of motion of hip. No tenderness remainder extremity. DP pulse 2 +. Sensation intact. Strength 5/5. SKIN: Warm, dry, no rash. NEURO: No focal deficits. Alert and oriented x3 Course Vital Signs Vital signs: Vital Signs Temperature 97.9 F 07/01/24 17: Pulse Rate 84 07/01/24 17:25 Respiratory Rate 16 07/01/24 17:25 Blood Pressure 166/91 H 07/01/24 17:25 Pulse Oximetry 96 07/01/24 17:25 Oxygen Delivery Room Air 07/01/24 17:25 Temperature 97.9 F 07/01/24 17:25 Pulse Rate 84 07/01/24 17:25 Respiratory Rate 16 07/01/24 17:25 Blood Pressure 166/91 H 07/01/24 17:25 Pulse Oximetry 96 07/01/24 17:25 Oxygen Delivery Room Air 07/01/24 17:25 MDM - Extremity Injury (Lower) MDM Narrative Medical decision making narrative: 44-year-old male presents emergency department for left hip pain after feeling 3 pops in his left hip while he was golfing. Vitals with elevated blood pressure, otherwise unremarkable. Exam significant for tenderness to the lateral posterior aspect of the hip. Patient has full active passive range of motion. No obvious deformity. He is neurovascularly intact. X-ray of the hip shows mild left hip osteoarthritis. Patient updated on results. He is given Tylenol, lidocaine patches and Flexeril with some improvement. Suspect hip strain/flare of osteoarthritis. Patient has history of gastric surgery, will refrain from NSAIDs. Tylenol, Flexeril and lidocaine patches sent to pharmacy. Advised follow-up with Orthopedics, he is established with Ortho in [place]. Discussed return precautions. He is agreeable with the plan verbalized understanding. Discharged in stable condition Discharge Plan Discharge Clinical Impression: Hip sprain Patient Disposition: Home, Self-Care Condition: Stable Instructions: Antibiotic Form, Hip Sprain (ED) Additional Instructions: Please rest and ice your injury. Take the medications as needed. Follow up with your orthopedist. Return to the emergency department if you develop new or worsening symptoms. Patient Language: Hungarian Prescriptions: New lidocaine 5 % adhesive patch,medicated 1 patch topical DAILY Qty: 15 0RF Rx Instructions: leave on most painful area for up to 12 hrs. do not use more than 1 patch in a 24-hour period. cyclobenzaprine 10 mg tablet 10 mg PO TID PRN (Reason: muscle spasm) Qty: 14 0RF acetaminophen 500 mg capsule 500 mg PO Q6H PRN (Reason: pain) Qty: 14 0RF No Action latanoprost 0.005 % drops 1 drp EACH EYE HS multivitamin [Daily Multi-Vitamin] Tablet 1 tablet PO DAILY Follow-up/Referrals: Ariel Shultz MD [Primary Care Provider] -
[2024-07-01] MEDS: ACETAMINOPHEN 500 MG TABLET 1000 MG PO (17:51)
[2024-07-01] MEDS: LIDOCAINE 5% PATCH 1 PATCH TRANSDERM (17:52)
[2024-07-01] MEDS: CYCLOBENZAPRINE HCL 10 MG TABLET PO (17:52)
--- OUTSIDE RECORDS SUMMARY | 2024-07-01 17:58 | XMS_ITS | Encounter Summary ---
Author Organization [facility] Address [address] [place] [address] Care Team Providers Care White Metal Corrosion Proofer Name Role Phone Ariel Shultz MD Primary Care Provider Encounter Details Date Type Department Care Team (Late st Contact Info) Description 02/02/2019 Abstract [facility] Operating Room [address] [address] Michael Álvarez MD [address] [place] [address] Social History Tobacco Use Types Packs/Day Years [...] on filedocumented in this encounter Care Teams White Metal Corrosion Proofer Relationship Specialty Start Date End Date Ariel Shultz MD [address] [facility] [address] [facility] 120 [place] [address] PCP - General Family Practice 03/10/19 documented as of this encounter
--- OUTSIDE RECORDS SUMMARY | 2024-07-01 17:58 | XMS_ITS | Clinical Summary ---
Author Organization [facility] Address [address] [place] [address] Care Team Providers Care Title Coordinator Name Role Phone Ariel Shultz MD Primary [...] age to complete this topic Care Teams Title Coordinator Relationship Specialty Start Date End Date Ariel Shultz MD [address] [place] [address] PCP - General 09/11/14
--- OUTSIDE RECORDS SUMMARY | 2024-07-01 17:58 | XMS_ITS | Referral Summary ---
Author Organization [facility] Address [address] [place] [address] Care Team Providers Care Factory Lay Out Engineer Name Role Phone Ariel Shultz MD Primary [...] on file Legal Sex Male 5:30 AM STAFF TOXICOLOGIST Gender Identity Not on file Sexual Orientation Not on file Last Filed Vital Signs Vital Sign Reading Time Taken Comments Blood Pressure 128/88 06/05/2021 2:21 PM STAFF TOXICOLOGIST Pulse 88 06/05/2021 2:21 PM STAFF TOXICOLOGIST Temperature - - Respiratory Rate - - Oxygen Saturation 97% 06/05/2021 11:30 AM STAFF TOXICOLOGIST Inhaled Oxygen Concentration - - Weight 104.8 kg (231 lb) 06/05/2021 11:30 AM STAFF TOXICOLOGIST Height 177.8 cm (5' 10 ) 06/05/2021 11:30 AM STAFF TOXICOLOGIST Body Mass Index 33.15 06/05/2021 11:30 AM STAFF TOXICOLOGIST Plan of Treatment Not on file Insurance [facility] CHOICE PLUS [employer] OPEN ACCESS Care Teams Factory Lay Out Engineer Relationship Specialty Start Date End Date Ariel Shultz MD [address] [place] [address] [address] [facility] [address] [place] [address] PCP - General Family Medicine 01/16/19
--- OUTSIDE RECORDS SUMMARY | 2024-07-01 17:58 | XMS_ITS | Clinical Summary ---
Author Organization [facility] Address [address] [place] [address] Care Team Providers Care Spark Plug Assembler Name Role Phone Ariel Shultz MD Primary [...] on file Legal Sex Male 5:30 AM SUPPRESSION CREW LEADER Gender Identity Not on file Sexual Orientation Not on file Obstetrics History Last Filed Vital Signs Vital Sign Reading Time Taken Comments Blood Pressure 128/88 06/05/2021 2:21 PM SUPPRESSION CREW LEADER Pulse 88 06/05/2021 2:21 PM SUPPRESSION CREW LEADER Temperature - - Respiratory Rate - - Oxygen Saturation 97% 06/05/2021 11:30 AM SUPPRESSION CREW LEADER Inhaled Oxygen Concentration - - Weight 104.8 kg (231 lb) 06/05/2021 11:30 AM SUPPRESSION CREW LEADER Height 177.8 cm (5' 10 ) 06/05/2021 11:30 AM SUPPRESSION CREW LEADER Body Mass Index 33.15 06/05/2021 11:30 AM SUPPRESSION CREW LEADER Plan of Treatment Not on file Insurance [facility] CHOICE PLUS [facility] OPEN ACCESS Care Teams Spark Plug Assembler Relationship Specialty Start Date End Date Ariel Shultz MD [address] [facility] 120 [place], [place] [id number] PCP - General Family Medicine 01/16/19
--- OUTSIDE RECORDS SUMMARY | 2024-07-01 17:58 | XMS_ITS | Continuity of Care Document ---
Author Organization [facility] Address [address]acey [address] [place] [address] Phone Care Team Providers Care Crook Operator Name Role Phone Lucy CHAN FACS, Eliecer [...] Diagnoses Date Provider Providers Copied on Encounter [facility], [address] [place], [place] [address], [place], [place], [address], tel:[phone] SEC [place] No Information 1 Lucy Gonzáles. [facility] [employer], [address], [place], [place], [address], [place]. tel:[phone] [facility], [facility] [employer] [address], [place], [place], [address], [place] tel:[phone] SEC Juancarlos N Lindbergh No Information 1 Lucy Gonzáles. [facility] [address], [address], [place], [place], [address], [place]. tel:[phone] [facility], [facility] [employer] [address], [place], [place], [address], [place] tel:[phone] SEC [place] N [place] 6 month Complete (chief complaint) Keratoconus, stable, right eyeOcular hypertension, bilateralOther age-related incipient cataract, right eyeHx of LASIK 8 Lucy Gonzáles. [facility] [address], [address], [place], [place], [address], [place]. tel:[phone] Referring Provider: Bronson Schafer, [address] [place] [address] [address], [place], [address] . tel:[phone] Office/outpat ient Visit, [facility], [address], [place], [place], [address], [place] tel:[phone] SEC Juancarlos Sawyer 3-4 Month follow up (chief complaint) Unspecified cataractKeratoc onus, stable, right eyeOcular hypertension, bilateral Mar-0 5-201 8 Rat[place]iff Eliecer. [address] [place] [address], [address], [place], [place], [address], [place]. tel:[phone] Referring Provider: Bronson Schafer, [address] [facility] [address] [facility], [place], [address] . tel:[phone] [facility], [address] [place] [address] [address], [place], [place], [address], [place] tel:[phone] SEC Juancarlos Sawyer contact lens fitting (chief complaint) Peripheral opacity of both corneasKeratoco nus, unspecified, bilateral Nov-0 6-201 7 Winnie Dobson. [address] [facility], [address], [id number], [place]. tel:[phone] Referring Provider: Bronson Schafer, [address] [facility] [address] [facility], [place], [address] . tel:[phone] Office/outpat ient Visit, [facility], [address] [place] [address] [address], [place], [place], [address], [place] tel:[phone] SEC Juancarlos Sawyer glaucoma, pressure check (chief complaint) Ocular hypertension, bilateral Nov-0 6-201 7 Lucy Eliecer. [address] [place] [address], [address], [place], [place], [address], [place]. tel:[phone] Referring Provider: Bronson Schafer, [address] [facility] [address], [place], [address] . tel:[phone] [facility], [address] [place] [address] [address], [place], [place], [address], [place] tel:[phone] SEC Juancarlos Sawyer Office visit (chief complaint) No Information 0 2-201 7 Lucy Eliecer. [address] [place] [address], [address], [place], [place], [address], [place]. tel:[phone] Referring Provider: Bronson Schafer, [address] [facility] [address], [place], [address] . tel:[phone] Office/outpat ient Visit, [facility], [address] [place] [address] [address], [place], [place], [address], [place] tel:[phone] SEC Junacarlos Sawyer 4 week Follow Up (chief complaint) No Information Nov--201 7 Lucy Eliecer. [address] [place] [address], [address], [place], [place], [address], . tel:[phone] Referring Provider: Bronson Schafer, [address] [facility] [address], [place], [address] . tel:[phone] [facility], [address] [place] [address] [address], [place], [place], [address], [place] tel:[phone] SEC Juancarlos Sawyer [place] (chief complaint) No Information 0 3 7 Winnie Dobson. [address] [facility], [facility] [address], [place], [address], [place]. tel:[phone] Referring Provider: Bronson Schafer, [address] [facility] [address], [place], [address] . tel:[phone] [facility], [address] [place] [address] [address], [place], [place], [address], [place] tel:[phone] SEC [facility] [place] No Information 3-201 0 Lucy Eliecer. [address] [place] [address], [address], [place], [place], [address], . tel:[phone] Referring Provider: Daron Wood OD F, [address] [facility] [address] [address], [place], [address]. tel:[phone] [facility], [address], [place], [place], [address], [place] tel:[phone] SEC [facility] [place] No Information 2-201 0 [facility] . [address] [facility], [place], [place], [address], [place]. tel:[phone] Referring Provider: Daron Wood OD F, [address], [place], [address]. tel:[phone] Family History Family Member Type Diagnosis Age At Onset No Information Payers Payer name Insurance type Covered republican ID Authorarely hairston(s) Dottie CANCINO [id number] Social History Type Description Quantity Date Captured [...] dorps. Pt states he currently resides in [place] for the past 4 months. 4 week [...] Impression/Plan Impression/Plan Impression/Plan - Re turn to [facility] in 3 months as scheduled. Keratoconus, unspeci fied, bilateral - Educational material given Related to Keratoconus, unspecified, bilateral Impression/Plan - IO P improved on Latanoprost.Refills sent to [facility] employee pharmacy for mail order. Pt is going to [place]. Return to [facility] in 3-4 months for follow up [...] for glaucoma development. He currently lives in [place] now and drives here for his appointments. Rec he find an nuclear medicine officer in [place] that can check his IOP to prevent [...]
--- OUTSIDE RECORDS SUMMARY | 2024-07-01 17:58 | XMS_ITS | Clinical Summary ---
Author Organization [facility] Address [address] [facility] [address] [address] Phone Care Team Providers Care Binding Cutter Name Role Phone Ariel Shultz MD Primary Care Provider [phone] Allergies No known active allergies Medications latanoprost [...] 60 mL 300 mL 03/28/2019 11:50 AM SUPERVISOR CORRESPONDENCE SECTION 9 Active ondansetron (ZOFRAN ODT) 4 mg Tablet, Rapid Dissolve Place 1 Tablet (4 mg) under tongue every 6 hours as needed for Nausea. 15 Tablet 03/28/2019 11:50 AM SUPERVISOR CORRESPONDENCE SECTION 9 Active Active Problems Problem Noted Date [...] Comments Blood Pressure 133/79 03/28/2019 12:00 PM SUPERVISOR CORRESPONDENCE SECTION Pulse 76 03/28/2019 12:00 PM SUPERVISOR CORRESPONDENCE SECTION Temperature 36.7 C (98.1 F) 03/28/2019 12:00 PM SUPERVISOR CORRESPONDENCE SECTION Respiratory Rate 18 03/28/2019 12:00 PM SUPERVISOR CORRESPONDENCE SECTION Oxygen Saturation 100% 03/28/2019 12:00 PM SUPERVISOR CORRESPONDENCE SECTION Inhaled Oxygen Concentration - - Weight 161 kg (355 lb) 03/28/2019 4:18 AM SUPERVISOR CORRESPONDENCE SECTION Height 177.8 cm (5' 10 ) 03/27/2019 11:00 AM SUPERVISOR CORRESPONDENCE SECTION Body Mass Index 50.94 03/27/2019 11:00 AM SUPERVISOR CORRESPONDENCE SECTION Plan of Treatment Health Maintenance Due Date [...] this topic Medical Devices Implanted Type Area Human Resource Manager Device Identifier Shelf Expiration Date Model / Serial / Lot Seamguard Endogia 60 Blck [id number] - [id number] Implanted:Qty : 2 on 03/27/2019 by Michael Álvarez MD at [facility] [employer] N/A: Stomach [employer] 01/11/2022 [id number] / / [id number] Seamguard Endogia 60 Prpl [id number] - [id number] Implanted:Qty : 3 on 03/27/2019 by Michael Álvarez MD at [facility] [employer] N/A: Stomach [employer] 01/12/[id number] / / [id number] Spinal Hardware Insurance [facility] [id number] RX [employer] RX Member Subscriber Plan / Payer (Ef fective for All Dates) Name:Phil Mccann Relation to Subscriber:Self Name:RamyPhil Hanh Payer ID:Not on file Group ID:[facility] Type:RX Commercial Address: [address] Advance Directives For more information, please contact: [phone] * Full Code (Latest Code Status on File) Date Activated Date Inactivated Comments 03/27/2019 10:52 AM 03/28/2019 6:47 PM * Full Code Date Activated Date Inactivated Comments 03/27/2019 6:20 AM 03/27/2019 10:52 AM Care Teams Binding Cutter Relationship Specialty Start Date End Date Ariel Shultz MD [address] [facility] [address] [place] [id number] PCP - General Family Practice 03/10/19
== END 2024-07-01 18:58 | disposition home or self-care (01) ==
PROVIDERS: Emergency Provider Physician Assistant; PCP Family Medicine
DX: S73.102A Unspecified sprain of left hip, initial encounter (principal); I10 Essential (primary) hypertension; E66.01 Morbid (severe) obesity due to excess calories; G47.33 Obstructive sleep apnea (adult) (pediatric); Z87.891 Personal history of nicotine dependence; X50.9XXA Other and unspecified overexertion or strenuous movements or postures, initial encounter; Y93.53 Activity, golf
CPT/HCPCS: 73502; 99283; A9270